=== PATIENT | female | born 1970 | race Two or more races ===

== ENCOUNTER → 2025-03-09 | Outpatient (CLI) | payer MEDICAID, SELFPAY ==
--- NOTE | 2025-03-09 15:50 | XR_ITS ---
EXAMINATION: PA lateral chest 2 views TECHNIQUE: Upright PA lateral chest 2 views Date and time: March 09, 2025, 1603 hours INDICATIONS: Cough and chest pain beginning 2 weeks ago. FINDINGS: Normal heart size The lungs are clear. Right internal jugular dialysis catheter tip satisfactory position. Moderate osteopenia IMPRESSION: No active disease
== END | disposition home or self-care (01) ==
LOC: CDIM 15:44
PROVIDERS: PCP Physician Assistant; Referring Provider Physician Assistant; Visit Provider Physician Assistant
DX: R05.1 Acute cough (principal)
CPT/HCPCS: 71046